=== PATIENT | male | born 1990 | race Caucasian/White ===

== ENCOUNTER 2017-12-26 23:38 | Emergency (ER) | payer OTHER ==
[2017-12-27] MEDS ORDERED: HYDROCODONE/APAP 5/325 MG TAB ONE (00:24)
[2017-12-27] MEDS ORDERED: LIDOCAINE 1% MPF 5 ML VIAL ONE (00:36)
[2017-12-27] MEDS ORDERED: CEFAZOLIN SODIUM 1 GM/VIAL ONE (01:01)
--- NOTE | 2017-12-27 01:52 | ER ---
Nurse's Notes [facility] Name: Timo Saab Age: 27 yrs Sex: Male : 1990 Arrival Date: 12/26/2017 Time: 23:45 Bed 30 Private MD: Diagnosis: Crushing injury of hand-with open fracture and air injection Presentation: 12/26 23:49 Presenting complaint: Patient states: he was at work approx 30 minutes ago and got his bb left hand caught between 2 pieces of equipment receiving a laceration to the palm of his hand. Transition of care: patient was not received from another setting of care. Complicating Factors: There are no complicating factors for this patient. Onset of symptoms was December 26, 2017. Risk Assessment: Do you want to hurt yourself or someone else? Patient reports no desire to harm self or others. Initial Sepsis Screen: Does the patient meet any 2 criteria? No. Patient's initial sepsis screen is negative. Does the patient have a suspected source of infection? No. Patient's initial sepsis screen is negative. Care prior to arrival: None. 23:49 Method Of Arrival: Ambulatory bb 23:49 Acuity: SKIP 3 bb Historical: - Allergies: 23:50 No Known Allergies; bb - Home Meds: 23:50 None [Active]; bb - PMHx: 23:50 None; bb - PSHx: 23:50 None; bb - Immunization history:: Last tetanus immunization: unknown. - Social history:: Smoking status: Patient/guardian denies using tobacco, Patient uses alcohol, occasionally. Patient/guardian denies using street drugs. - Ebola Screening: : No symptoms or risks identified at this time. Screenin/13 00:08 Abuse screen: Denies threats or abuse. Denies injuries from another. Nutritional mg2 screening: No deficits noted. Tuberculosis screening: No symptoms or risk factors identified. Fall Risk None identified. Assessment: 00:06 General: Appears in no apparent distress. comfortable, Behavior is calm, cooperative. mg2 Pain: Complains of pain in left hand Pain does not radiate. Pain currently is 4 out of 10 on a pain scale. Quality of pain is described as aching, Pain began suddenly, 30 min ago. Neuro: Level of Consciousness is awake, alert, obeys commands, Oriented to person, place, time. Cardiovascular: Capillary refill < 3 seconds Patient's skin is warm and dry. Respiratory: Airway is patent Respiratory effort is even, unlabored, Respiratory pattern is regular, symmetrical. GI: No signs and/or symptoms were reported involving the gastrointestinal system. : No signs and/or symptoms were reported regarding the genitourinary system. EENT: No signs and/or symptoms were reported regarding the EENT system. Derm: Skin is intact, Skin is pink, warm \T\ dry. normal, Wound noted left hand Wound is new and bleeding controlled by pressure. Musculoskeletal: Circulation, motion, and sensation intact. Injury Description: Laceration is 2.6 to 7.5 cm long, bleeding controlled. 02:11 Reassessment: Nurse Gaffney of [facility] received the report. mg2 Vital Signs: 12/26 23:50 BP 144 / 84; Pulse 66; Resp 16 S; Temp 99.5(O); Pulse Ox 100% on R/A; Weight 68.04 kg bb (R); Height 6 ft. 2 in. (187.96 cm) (R); Pain 4/10; 12/27 01:31 BP 124 / 80; Pulse 89; Resp 18; Pulse Ox 100% ; Pain 0/10; mg2 12/26 23:50 Body Mass Index 19.26 (68.04 kg, 187.96 cm) bb ED Course: 12/26 23:45 Patient arrived in ED. ds1 23:48 Hilario Bear, CANDELARIO is Primary Nurse. mg2 23:50 Triage completed. bb 23:50 Arm band placed on Patient placed in an exam room, on a stretcher, on pulse oximetry. bb 12/27 00:18 Kanchan Candelaria FNP-C is PHCP. snw 00:18 Olivier Cooley MD is Attending Physician. snw 00:44 XRAY Hand LEFT 3 View In Process Unspecified. EDMS 01:30 Patient has correct armband on for positive identification. Placed in gown. Bed in low mg2 position. Call light in reach. Side rails up X 1. Pulse ox on. NIBP on. Door closed. Warm blanket given. 01:30 suturing of left palm -4 stitches made under local anesthesia. mg2 01:30 Dressings: non-adherent dressing x 1 palm of left hand. mg2 02:31 Ice pack to injury. mg2 02:42 Patient did not have IV access during this emergency room visit. mg2 Administered Medications: 00:23 Drug: [place] 5 mg-325 mg 1 tabs Route: PO; mg2 02:17 Follow up: Response: No adverse reaction; Pain is decreased mg2 01:29 Drug: Lidocaine (1 %) 1 vials Volume: 20 ml; Route: Infiltration; mg2 02:16 Follow up: Response: No adverse reaction; Pain is decreased mg2 01:29 Drug: Ancef 1 grams Route: IM; Site: right gluteus; mg2 02:16 Follow up: Response: No adverse reaction mg2 Outcome: 01:51 ER care complete, transfer ordered by . snsahil 02:43 Transferred to [facility]. mg2 02:43 Transferred Transfer form completed. 02:43 Condition: stable 02:43 Instructed on follow up and referral plans. the need for transfer, Demonstrated understanding of instructions. 02:44 Patient left the ED. mg2 Signatures: Dispatcher [employer] EDMS Kanchan Candelaria, JASPAL-C MANAGER SOCIAL WORK-Csnw Marietta Salinas tm4 Amos Asiya ds1 Jess Peterson, RN RN bb Hilario Bear, CANDELARIO RN mg2 Corrections: (The following items were deleted from the chart) 00:02 00:02 Patient moved to radiology via wheelchair. tm4 tm4
--- NOTE | 2017-12-27 01:52 | EDPHYS ---
Physician Documentation [facility] Name: Timo Saab Age: 27 yrs Sex: Male : 1990 Arrival Date: 12/26/2017 Time: 23:45 Bed 30 Private MD: ED Physician Olivier Cooley HPI: 12/27 00:33 This 27 yrs old Male presents to ER via Ambulatory with complaints of snw Laceration To Hand. 00:33 The patient has a laceration related to: working, occurred at work, and there are no snw complicating factors. The injury was accidental, pt's left hand was caught between two heavy objects. The laceration(s) is(are) located on the palm of left hand. Onset: The symptoms/episode began/occurred suddenly, just prior to arrival. Associated signs and symptoms: The patient has no apparent associated signs or symptoms. The patient has not experienced similar symptoms in the past. It is unknown whether or not the patient has recently seen a physician. last tetanus 2 months ago. Historical: - Allergies: 12/26 23:50 No Known Allergies; bb - Home Meds: 23:50 None [Active]; bb - PMHx: 23:50 None; bb - PSHx: 23:50 None; bb - Immunization history:: Last tetanus immunization: unknown. - Social history:: Smoking status: Patient/guardian denies using tobacco, Patient uses alcohol, occasionally. Patient/guardian denies using street drugs. - Ebola Screening: : No symptoms or risks identified at this time. ROS: 12/27 00:27 Constitutional: Negative for fever, chills, and weight loss, Eyes: Negative for injury, snw pain, redness, and discharge, ENT: Negative for injury, pain, and discharge, Neck: Negative for injury, pain, and swelling, Cardiovascular: Negative for chest pain, palpitations, and edema, Respiratory: Negative for shortness of breath, cough, wheezing, and pleuritic chest pain, Abdomen/GI: Negative for abdominal pain, nausea, vomiting, diarrhea, and constipation, Back: Negative for injury and pain, : Negative for injury, bleeding, discharge, and swelling, Neuro: Negative for headache, weakness, numbness, tingling, and seizure. MS/extremity: Positive for injury or acute deformity, swelling, tenderness, of the palm of left hand. Skin: Positive for laceration(s), of the palm of left hand. Exam: 00:27 Constitutional: This is a well developed, well nourished patient who is awake, alert, snw and in no acute distress. Head/Face: Normocephalic, atraumatic. Eyes: Pupils equal round and reactive to light, extra-ocular motions intact. Lids and lashes normal. Conjunctiva and sclera are non-icteric and not injected. Cornea within normal limits. Periorbital areas with no swelling, redness, or edema. ENT: Nares patent. No nasal discharge, no septal abnormalities noted. Tympanic membranes are normal and external auditory canals are clear. Oropharynx with no redness, swelling, or masses, exudates, or evidence of obstruction, uvula midline. Mucous membranes moist. Neck: Trachea midline, no thyromegaly or masses palpated, and no cervical lymphadenopathy. Supple, full range of motion without nuchal rigidity, or vertebral point tenderness. No Meningismus. Chest/axilla: Normal chest wall appearance and motion. Nontender with no deformity. No lesions are appreciated. Cardiovascular: Regular rate and rhythm with a normal S1 and S2. No gallops, murmurs, or rubs. Normal PMI, no JVD. No pulse deficits. Respiratory: Lungs have equal breath sounds bilaterally, clear to auscultation and percussion. No rales, rhonchi or wheezes noted. No increased work of breathing, no retractions or nasal flaring. Abdomen/GI: Soft, non-tender, with normal bowel sounds. No distension or tympany. No guarding or rebound. No evidence of tenderness throughout. Back: No spinal tenderness. No costovertebral tenderness. Full range of motion. Neuro: Awake and alert, GCS 15, oriented to person, place, time, and situation. Cranial nerves II-XII grossly intact. Motor strength 5/5 in all extremities. Sensory grossly intact. Cerebellar exam normal. Normal gait. Psych: Awake, alert, with orientation to person, place and time. Behavior, mood, and affect are within normal limits. 00:27 Skin: Appearance: normal except for affected area, injury, laceration(s), the wound is approximately 2.5 cm(s), with a depth of 2 cm(s), of the palm of left hand, that can be described as linear. Vital Signs: 12/26 23:50 BP 144 / 84; Pulse 66; Resp 16 S; Temp 99.5(O); Pulse Ox 100% on R/A; Weight 68.04 kg bb (R); Height 6 ft. 2 in. (187.96 cm) (R); Pain 4/10; 12/27 01:31 BP 124 / 80; Pulse 89; Resp 18; Pulse Ox 100% ; Pain 0/10; mg2 12/26 23:50 Body Mass Index 19.26 (68.04 kg, 187.96 cm) bb Laceration: 01:31 Wound Repair of 2.5cm ( 1.0in ) subcutaneous laceration to palm of left hand. snw Irregularly shaped.. Distal neuro/vascular/tendon intact. Anesthesia: Wound infiltrated with 10 mls of 1% lidocaine. Wound prep: Extensive cleansing with betadine, Wound irrigation with saline by fl, Wound margin revised minimally. Skin closed with 4 3-0 Prolene using simple sutures and sterile technique. Dressed with non-adherent dressing. Patient tolerated well. MDM: 00:19 Patient medically screened. snw 01:44 Data reviewed: vital signs, nurses notes. Data interpreted: Pulse oximetry: on room air snw is 100 %. Interpretation: normal. Test interpretation: by ED physician or midlevel provider: plain radiologic studies, x-ray with + third proximal phalanx fracture, air in tissues about the first mcp. Counseling: I had a detailed discussion with the patient and/or guardian regarding: the historical points, exam findings, and any diagnostic results supporting the discharge/admit diagnosis, the presence of at least one elevated blood pressure reading (>120/80) during this emergency department visit, radiology results, the need to transfer to another facility. Physician consultation: Dr Rosales was called at 01:46, was contacted at 01:46, regarding regarding transfer, to [facility]. ED course: Dr. Rosales kindly accepts pt in transfer.. 12/26 23:52 Order name: XRAY Hand LEFT 3 View bb 12/27 01:22 Order name: NPO; Complete Time: 01:29 snw 12/27 01:33 Order name: Wound dressing: please place nonstick telfa and then pérez wrap left hand; snw Complete Time: 02:17 12/27 01:33 Order name: Ice pack; Complete Time: 02:16 snw Administered Medications: 00:23 Drug: [place] 5 mg-325 mg 1 tabs Route: PO; mg2 02:17 Follow up: Response: No adverse reaction; Pain is decreased mg2 01:29 Drug: Lidocaine (1 %) 1 vials Volume: 20 ml; Route: Infiltration; mg2 02:16 Follow up: Response: No adverse reaction; Pain is decreased mg2 01:29 Drug: Ancef 1 grams Route: IM; Site: right gluteus; mg2 02:16 Follow up: Response: No adverse reaction mg2 Disposition: 12/27/17 01:51 Transfer ordered to [facility]. Diagnosis is Crushing injury of hand - with open fracture and air injection. - Reason for transfer: Higher level of care. - Accepting physician is Dr. Rosales. - Condition is Stable. - Problem is new. - Symptoms are unchanged. Addendum: 12/29/2017 06:35 Co-signature as Attending Physician, Olivier Cooley MD I agree with the assessment and c goyal plan of care. Signatures: Dispatcher [employer] EDTN Olivier Cooley MD MD cha Therrien, Shelly, FOREST FI[employer] MANAGEMENT OFFICER-C FOREST FI[employer] MANAGEMENT OFFICER-[employer] Jess Peterson, RN RN bb Hilario Bear RN RN mg2 Corrections: (The following items were deleted from the chart) 12/27 02:44 01:51 12/27/2017 01:51 Transfer ordered to [facility]. mg2 Diagnosis is Crushing injury of hand - with open fracture and air injection. Reason for transfer: Higher level of care. Accepting physician is Dr. Rosales. Condition is Stable. Problem is new. Symptoms are unchanged. snw
--- NOTE | 2017-12-27 08:25 | RAD REPORT ---
EXAM DESCRIPTION: RAD - Hand Left 3 View - 12/27/2017 12:44 am CLINICAL HISTORY: Pain;Smash injury Laceration COMPARISON: No comparisons FINDINGS: Soft tissue swelling with small punctate subcutaneous foci of air noted in the thenar nimesh on and about the second and third MCP joints. Cortical discontinuity is seen involving the base of th e proximal phalanx of the third digit with intra-articular involvement the third MCP joint, compatibl e with fracture.
== END 2017-12-27 02:44 | disposition short-term general hospital (02) ==
LOC: ER 23:38
PROC: 0JQK0ZZ Repair Left Hand Subcutaneous Tissue and Fascia, Open Approach (ICD-10-PCS; principal; 2017-12-27)
DX: S61.412A Laceration without foreign body of left hand, initial encounter (principal); W45.8XXA Other foreign body or object entering through skin, initial encounter; Y93.9 Activity, unspecified; Y92.89 Other specified places as the place of occurrence of the external cause; Y99.8 Other external cause status
CPT/HCPCS: 96372; 99285; J0690